=== PATIENT | female | born 1985 | race Caucasian/White ===

== ENCOUNTER 2018-12-29 07:45 | Emergency (ER) | payer MEDICAID, OTHER, SELFPAY ==
[~2018-12-29] VITALS: Ht 160 cm; Wt 57.4 kg
--- NOTE | 2018-12-29 07:59 | NUR ---
MID BACK PAIN AND COUGH WITH ACCOMPANYING CHEST PAIN AND PRESSURE. THROAT PAIN. PA AT BEDSIDE EXAMINING PT
[2018-12-29 08:19] LABS: BASOPHILS # (AUTO) 0.05 x10^3/uL (0-0.1); BASOPHILS % (AUTO) 1 % (0-1); EOSINOPHILS # (AUTO) 0.16 x10^3/uL (0-0.4); EOSINOPHILS % (AUTO) 2 % (1-7); LYMPHOCYTES # (AUTO) 1.45 x10^3/uL (1-3.4); LYMPHOCYTES % (AUTO) 16 % (22-44); MD NO; MEAN CORPUSCULAR HGB CONC 33.8 g/dL (32.4-35.8); MEAN CORPUSCULAR VOLUME 88.8 fL (80-100); MEAN PLATELET VOLUME 7.5 fL (7.4-10.4); MONOCYTES # (AUTO) 0.51 x10^3/uL (0.2-0.8); MONOCYTES % (AUTO) 5 % (2-9); NEUTROPHILS # (AUTO) 7.19 x10^3/uL (1.8-6.8); NEUTROPHILS % (AUTO) 77 % (42-75); PLATELET COUNT 326 x10^3/uL (130-400); RED BLOOD COUNT 4.77 x10^6/uL (3.82-5.3); RED CELL DISTRIBUTION WIDTH 12.8 % (9.6-15.2)
--- NOTE | 2018-12-29 08:20 | NUR ---
AFTER LABS DRAWN TO XRAY, AMBULATING WITH TECH
[2018-12-29] MEDS ORDERED: KETOROLAC 30 MG/1 ML ONE (08:24)
[2018-12-29 08:29] LABS: ALBUMIN 3.8 g/dL (3.4-5.0); ANION GAP 7 mmol/L (5-15); CALCIUM 8.5 mg/dL (8.5-10.1); CHLORIDE 109 mmol/L (98-107)
[2018-12-29] MEDS ORDERED: KETOROLAC 30 MG/1 ML IVPush ONE (08:30)
[2018-12-29] MEDS ORDERED: SODIUM CHLORIDE FLUSH 10ML SYR IVF ONE (08:30)
--- NOTE | 2018-12-29 08:33 | NUR ---
PT. REMAINS MONITORED. VSS. IV ACCESS ESTABLISHED. PT. WAS MEDICATED ORDERED. PT. IS WATCHING TV WITHOUT CONCERNS.
[2018-12-29 08:35] LABS: CREATININE 0.81 mg/dL (0.55-1.02); TROPONIN I < 0.015 ng/mL (0.000-0.045)
[2018-12-29] MEDS ORDERED: LORazepam 2 MG/ML, 1ML ONE (08:38)
[2018-12-29] MEDS ORDERED: LORazepam 2 MG/ML, 1ML IVPush ONE (09:00)
--- NOTE | 2018-12-29 09:34 | NUR ---
PT. WAS GIVEN DISCHARGE INSTRUCTIONS AND SCRIPTS WITH UNDERSTANDING VERBALIZED ALONG WITH WILLINGNESS TO COMPLY. PT. WAS AMBULATORY TO THE DISCHARGE DESK, PT. STATES HER IS DRIVING.
[2018-12-29 09:35] VITALS: BP 112/75
== END 2018-12-29 09:37 | disposition home or self-care (01) ==
LOC: ED 09:20
DX: R07.89 Other chest pain (principal); J06.9 Acute upper respiratory infection, unspecified; F17.210 Nicotine dependence, cigarettes, uncomplicated
CPT/HCPCS: 36415; 71046; 80048; 82040; 83880; 84484; 85025; 93005; 96374; 96375; 99284; J1885; J2060